=== PATIENT | male | born 1975 | race Caucasian/White ===

== ENCOUNTER 2016-06-11 11:46 | Emergency (ER) | payer SELFPAY ==
--- NOTE | 2016-06-11 12:41 | DIAGNOSTIC IMAGING REPORT ---
PROCEDURE: XR HAND 3 OR 4 VIEWS - RIGHT INDICATION: TRAUMA/INJURY TECHNIQUE: Four views. COMPARISON: None. FINDINGS: No acute fracture or dislocation. Smooth deformity of the fifth metacarpal suggestive of an old fracture. Normal joint spaces. Moderate soft tissue swelling over the dorsum of the hand. IMPRESSION: 1. Soft tissue swelling.
--- NOTE | 2016-06-11 12:43 | DIAGNOSTIC IMAGING REPORT ---
PROCEDURE: XR FOREARM - RIGHT INDICATION: TRAUMA/INJURY TECHNIQUE: Two views of the right forearm. COMPARISON: None. FINDINGS: Soft tissue swelling along the proximal posterior and lateral aspect of the forearm. No evidence of a radiopaque foreign body or subcutaneous air. Bones are unremarkable without fracture or evidence of osteomyelitis. IMPRESSION: 1. Right for soft tissue swelling.
--- NOTE | 2016-06-11 14:49 | ED CLINICAL REPORT ---
Clinical Report - Physicians/Mid Levels [facility] [address] [place] [address] 06/11/2016 11:48 Patient: GERI RODRIGUEZ Time Seen: 12:13. Arrived- By private vehicle. Historian- patient. HISTORY OF PRESENT ILLNESS Chief Complaint: Injury to the right hand and forearm. The injury happened forearm symptoms began yesterday; hand closed in car door today. Occurred at home. ( Last night noted a pimple on his right forearm that has now worsened with increased swelling and pain). The patient sustained a crush injury- caught hand in door (this am car door closed on his right hand). Patient is experiencing moderate pain. Patient denies injury to the head or neck. No other injury. REVIEW OF SYSTEMS The patient has had swelling. No tingling, numbness, weakness, foreign body or skin laceration. All systems otherwise negative, except as recorded above. PAST HISTORY PROBLEMS: Drug Poisoning. Lifestyle / Substance Problems. Diabetes Mellitus. Abdominal Pain. Hyperlipidemia. Depression. Fall. Back Pain. SURGERIES: Ankle. Fracture Repair. Knee Prosthesis. Knee Surgery. The patient's dominant hand is the right. Tetanus immunization status is up-to-date. Methicillin-resistant Staphylococcal infection. SOCIAL HISTORY Smoker- current status unknown. History of drug use prior use of methamphetamines and heroin - denies recent use (none in over 2 years). No alcohol use. ADDITIONAL NOTES The nursing notes have been reviewed. PHYSICAL EXAM Vital Signs: 06/11/2016 11:56 BP: 122/82. HR: 109. RR: 18. O2 saturation: 98%. Temp: 98.3 F. Pain level now: 12/02. Appearance: Alert. Oriented X3. Patient in moderate distress. Head: Head atraumatic. Eyes: Eyes normal inspection. No scleral icterus or pale conjunctivae. ENT: Pharynx normal. No pharyngeal erythema or tonsillar exudate. The mucous membranes are not dry. Neck: Normal inspection. Neck supple. C-spine non-tender. CVS: Tachycardia. Heart sounds normal. Respiratory: No respiratory distress. Breath sounds normal. Abdomen: No visible injury. Soft and nontender. No mass. Obese. Back: No tenderness. Normal inspection. Skin: (right forearm abcess - large). Extremities: Anatomic snuffbox, right arm: No tenderness or swelling. Right hand: moderate tenderness and mild swelling localized to the proximal, distal and dorsal aspect of the hand. Neurovascular intact distally. No erythema, laceration, abrasion, ecchymosis or puncture wound. No foreign body. No wrist injury. Extremities otherwise negative. Neuro, Vascular and Tendons: Vascular status intact. Sensation intact. Motor intact. Tendon function intact. Neuro: Oriented X 3. No motor deficit. LABS, X-RAYS, AND EKG Rt Forearm X-ray: No fracture. Normal alignment. No bony lesion, air in the soft tissue or foreign body. Joint spaces normal. Soft tissue swelling. Views: AP and lateral. Technique: good. The X-rays were interpreted contemporaneously by me. Rt Hand X-ray: No fracture. Normal alignment. No bony lesion, air in the soft tissue or foreign body. Soft tissues normal. Joint spaces normal. Views: AP, lateral and oblique. Technique: good. The X-rays were interpreted contemporaneously by me. PROGRESS AND PROCEDURES Procedural Sedation: Time-out completed immediately before the procedure. Indication: Abscess incision and drainage. ASA classification: 2 - patient with mild systemic disease. Last po intake: this am 7 hours ago (about). History / physical exam. See physical exam recorded above. He has no history of an adverse anesthesia reaction or family history of an adverse anesthesia reaction. Mallampati Classification: Class 3 - only soft palate visible. Short/bull neck. Preparation: consent was obtained and the risks of the procedure, benefits and alternatives were explained to patient. IV established. O2 administered. Placed on pulse oximeter and cardiac cath lab manager. Suction was made available. Medications: Propofol IV administered by physician. Patient status during sedation: was attended constantly, was cooperative and responded only to verbal commands with sluggish response to stimulation. Vitals were stable. Oxygen saturation levels were normal. The airway was maintained. The recovery was uneventful. Complications: None. Post-procedure: Recovery was uneventful. Returned to baseline. No acute distress. Sedation and procedure performed by me; intra-service time 38-52 minutes. Incision & Drainage of Abscess: The abscess is located in the right forearm. The risks of the procedure, benefits and alternatives were explained. Consent was obtained. IV established. O2 administered. Placed on pulse oximeter and cardiac cath lab manager. Local anesthesia provided using 0.50% Marcaine with epi and bicarb. Skin cleansed with Betadine. The abscess was incised with a #11 surgical blade. A moderate amount of pus was drained. Cavity was irrigated with saline and packed with gauze. Sample obtained for cultures and gram stain. A dressing was applied. ( Propofol 80 mg IV for analgesia / sedation). Course of Care: Percocet 5 mg PO given. Vancomycin 2 grams IVPB given. Zofran 4 mg ODT PO given. Propofol 80 mg for sedation IVP given. No systemic symptoms now. I&D performed with good visualization of underlying tissue and this is not typical for necrotizing faciitis . I have arranged for next day [facility] appt. Patient/family counseled. Old ED records reviewed. Disposition: Discharged. Condition: stable and improved. CLINICAL IMPRESSION Crush injury to the right hand. Single deep abscess to the right upper extremity with incision and drainage. Cellulitis of the right forearm. INSTRUCTIONS Apply ice. Elevate affected areas above chest level. Limit use of your hand. Do not work for three days. Warnings: INFECTION: Watch for signs of infection (increasing heat and redness, pus-like drainage, swelling, or increased pain). Return or see your doctor if these signs occur. SEDATIVE MEDICATION: You were given sedative medication during your visit. Do not drive or operate dangerous machinery. CONTROLLED SUBSTANCE WARNINGS. GENERAL WARNINGS: Return or contact your physician immediately if your condition worsens or changes unexpectedly, if not improving as expected, or if other problems arise. Prescription Medications: Hydrocodone/APAP 5mg / 325mg: take 1-2 orally every 8 hours as needed for pain. Dispense ten (10). No refill. Cephalexin 500 mg: take 1 capsule orally every 6 hours for 14 days. No refill. Bactrim DS 800 mg / 160 mg: take 1 tablet orally every 12 hours for 14 days. No refill. Substitution is permissible. OTC Medications: Acetaminophen (available over the counter): take according to label instructions. Motrin (available over the counter): take according to label instructions. Follow-up: Follow up with your doctor tomorrow. Follow-up with: [facility], , , [facility] [place], [address] [place] [address] [address], [place], [address] Follow up tomorrow. Reason for referral: AN APPOINTMENT HAS BEEN MADE FOR YOU FOR 09:30 AM TOMORROW - PLEASE ARRIVE 10 MIN EARLY. (Electronically signed by Josiah Camacho DO 06/11/2016 17:36)
--- NOTE | 2016-06-11 14:49 | ED NURSING NOTES ---
Clinical Report - Nurses [facility] [address] [place] [address] 06/11/2016 11:48 [id number] Triage time 11:56 Jun 11 2016. Acuity: LEVEL 3. Chief Complaint: Patient has an abcess on right arm, he says he slammed his arm in door and the area burst. 12:01 06/11/16. SEPSIS SCREEN: Sepsis Screen. Negative (no infection suspected/documented). CADY COMA SCORE: [place] Coma Scale: 15- eyes open spontaneously (4); best verbal response- oriented x 4 (5); best motor response- obeys commands (6). --12:01 Nae Gupta R.N. 11:56 06/11/16. BP: 122/82 (large adult cuff) taken on the left arm, while sitting. HR: 109. RR: 18. O2 saturation: 98% on room air. Temp: 98.3 F (oral). Pain level now: 12/02. --12:01 Nae Gupta R.N. Weight: 136 kg. Height/Length: 67 inches. BMI: 47. --12:00 Nae Gupta R.N. Medications None. --11:59 Nae Gupta R.N. Allergies No Known Drug Allergy. --11:59 Nae Gupta R.N. History Arrived by private vehicle. Historian: patient. Reported as located on the right forearm. It is described as moderately painful. Treatment CONTACT AND SERVICE CLERKS SUPERVISOR: None. PAST MEDICAL HX: Immunizations: status is unknown. SOCIAL HX: Current every day light tobacco smoker- less than 1/2 a pack per day. No alcohol use or drug use. No infectious disease exposure. ABUSE ASSESSMENT: No report of abuse. --12:01 Nae Gupta R.N. PROBLEMS: Drug Poisoning. Lifestyle / Substance Problems. Diabetes Mellitus. Abdominal Pain. Hyperlipidemia. Depression. Fall. Back Pain. --11:59 Nae Gupta R.N. ADDITIONAL SURGERIES: Ankle. Fracture Repair. Knee Prosthesis. Knee Surgery. --11:59 Nae Gupta R.N. Interventions ID band on patient. To treatment room. --12:01 Nae Gupta R.N. PHYSICAL ASSESSMENT 12:02 06/11/16. Ambulatory to room. GENERAL / NEURO / PSYCH: Alert. Appears in pain. Oriented X 4. HEENT: Pupils equal, round and reactive to light. Mucous membranes are pink. RESPIRATORY: Respirations not labored. Breath sounds within normal limits. CVS: Capillary refill less than 2 seconds. Pulses within normal limits. GI / : Abdomen nontender. SKIN: Skin is warm. Purulent drainage. Swelling on the right forearm- associated with erythema and tenderness. Increased warmth on the right forearm- associated with swelling, tenderness and erythema. --12:02 Nae Gupta R.N. NURSING PROGRESS NOTES The plan of care for this patient has been created. Monitoring of patient in place. Head of bed elevated. Reassurance given. Two patient identifiers checked. Call light placed in reach. Side rails up x 1. Bed placed in lowest position. Brakes of bed on. Patient ready for evaluation- chart flagged and ED physician notified. --12:02 Nae Gupta R.N. ( Patients arm elevated, and ice applied). --12:13 Nae Gupta R.N. 12:31 06/11/2016 Site #1 started via IV in the left forearm with an 20g angiocath; one attempt. --12:56 Sinai Reyna R.N. 12:56 06/11/2016 Started bag #1 1000 mL IV Fluids IV NS (Saline); at 999 mg/hr over 1 hour(s) via site #1 via IV pump. Allergies verified and confirmed 5 rights. IV patency established. IV site checked: no pain, redness, or swelling. IV flushed thoroughly pre- and post-medication administration. --12:56 Sinai Reyna R.N. Cardiac rhythm: sinus tachycardia. The initial plan of care for this patient has been created This plan of care was discussed with the patient. Monitoring of patient in place. Patient gowned. Reassurance given. The patient is calm. Overall patient status is the same- he states feels the same. GENERAL / NEURO / PSYCH: The patient reports pain. Call light placed in reach. Side rails up x 1. Bed placed in lowest position. Brakes of bed on. --13: Sinai Reyna R.N. 12:57 06/11/16. BP: 105/64. HR: 105. RR: 15. O2 saturation: 96% on room air. Temp: 97.4 F. Pain level now: 12/02. --13:01 Sinai Reyna R.N. 13:19 06/11/2016 Started 2 gm of Vancomycin IVPB in bag #1 500 mL; at 270 mg/hr over 2 hour(s) via site #1 via IV pump. Allergies verified and confirmed 5 rights. IV patency established. IV site checked: no pain, redness, or swelling. IV flushed thoroughly pre- and post-medication administration. --13:19 Sinai Reyna R.N. I & D: Incision and Drainage of abscess performed by ED physician. Assisted by one tech. Preparation: Incision and Drainage tray set up. Total time of assist / procedure: 15 minutes. ( assisted DrPb with procedure. cleaned wound area, bulky 4 x 4's to wound and wrapped with kerlex. Culture sent to lab.). --14:33 Kaylee Lam ER Tech1 14:21 06/11/2016 PROPOFOL IVP 80 mg given over 1 minute(s) via site #1. Allergies verified and confirmed 5 rights. IV patency established. IV site checked: no pain, redness, or swelling. IV flushed thoroughly pre- and post-medication administration. IVP given by physician (for concious sedation). --14:40 René Anderson R.N. 14:24 06/11/2016 Bupivacaine-Epinephrine (Bupivacaine-Epinephrine) Injection 0.5 % given. Allergies verified and confirmed 5 rights. (RIGHT Forearm by ). --14:39 René Anderson R.N. late entry -14:32. ( 1432-Conscious sedation completed for I and D of right arm, see paper documentation for sedation and vitals.). --14:42 René Anderson R.N. late entry -14:40. ( Pt recovered after conscious sedation with no complications, able to take PO liquids ice and water without difficulty or N/V). --14:43 René Anderson R.N. 14:43 06/11/16. BP: 108/62. HR: 100. RR: 13. O2 saturation: 100% on room air. --14:44 René Anderson R.N. 14:44 06/11/16. Cardiac rhythm: sinus tachycardia. --14:44 René Anderson R.N. 14:50 06/11/16. Patient ID band checked for patient name and birthdate. Clean catch urine collected with return of yellow-colored urine; sample sent to lab for urinalysis and culture. Specimen labeled in the presence of the patient. --14:50 René Anderson R.N. 14:51 06/11/16. Reassessment after procedure and medication administered. He has had no adverse reaction. GENERAL / NEURO / PSYCH: Denies anxiety. RESPIRATORY: Denies difficulty breathing. No respiratory distress present. No respiratory distress. Breath sounds normal. CVS: Normal sinus rhythm noted. Cardiac rhythm: normal sinus rhythm. SKIN: Denies itching or swelling. Skin is warm and dry. Skin color within normal limits. Skin color normal. --14:51 René Anderson R.N. ( 1433-Dressing applied by tech to right forearm). --14:55 René Anderson R.N. 15:14 06/11/2016 Vancomycin IVPB Discontinued: infused. Total amount infused: 500 mL. IV patency established. IV site checked: no pain, redness, or swelling. IV flushed thoroughly. --15:19 René Anderson R.N. 15:19 06/11/16. Reassessment after medication administered (after Vanco). He has had no adverse reaction. --15:19 René Anderson R.N. 15:22 06/11/2016 Oxycodone-APAP (Oxycodone-Acetaminophen) PO 1 tab given. Allergies verified, confirmed 5 rights and sedative warning given. --15:22 René Anderson R.N. 15:30 06/11/2016 IV Fluids IV NS Discontinued: bag #1 infused upon discharge. Total amount infused: 1000 mL. IV patency established. IV site checked: no pain, redness, or swelling. IV flushed thoroughly. --15:56 René Anderson R.N. DISPOSITION / DISCHARGE 15:17 06/11/2016 Site #1 removed upon discharge. Catheter intact. --15:17 René Anderson R.N. 15:18 06/11/16. Cardiac rhythm: normal sinus rhythm. Condition at departure: improved. The goals identified in the patient's plan of care were met. No learning barriers present. Discharge instructions provided and reviewed. Reviewed warnings. Reviewed medication(s). Treatments reviewed. Reviewed referrals (Wound care appt tomorrow at 0930, pt is aware, address and info on DC instructions). Patient verbalized understanding. Written instructions provided in Chinese. The patient was discharged by the physician. He was discharged home and unaccompanied at time of discharge. He left the Emergency Department ambulatory and via bus. FALL RISK ASSESSMENT: Fall risk assessment completed. No fall risk identified. --15:18 René Anderson R.N. 15:17 06/11/16. BP: 109/66. HR: 89. RR: 18. O2 saturation: 100% on room air. Temp: 98.2 F (oral). Pain level now: 06/02. --15:18 René Anderson R.N. Departure time: 1530. --15:51 René Anderson R.N. Locked/Released at 06/11/2016 15:58 by René Anderson R.N.
--- NOTE | 2016-06-11 14:49 | ED ORDER SUMMARY ---
..... Patient: GERI RODRIGUEZ OrderSheet [facility] VisitID: [id number] [place] [address] 41y, M Registration Date/Time: 06/11/2016 ORDER SHEET Weight: 136.0 kg Allergies: No Known Drug Allergy GENERAL ORDERS: Clinical Review Specialist (Continuous) (12:13 06/11/2016 PHutchinson DO) (13:19 EHassan R.N.) Hand 3 or 4V Right Urgent (12:14 06/11/2016 PHutchinson DO) (Ack 12:18 PWeiler ER Tech1) (12:50 JBoardley R.N.) Forearm Right Urgent (12:14 06/11/2016 PHutchinson DO) (Ack 12:18 PWeiler ER Tech1) (12:50 JBoardley R.N.) UA-Culture if indicated Urgent (12:14 06/11/2016 PHutchinson DO) (Ack 12:18 PWeiler ER Tech1) (14:50 JBoardley R.N.) Cardiac Panel Stat (12:14 06/11/2016 PHutchinson DO) (12:17 JSanders R.N.) (Ack 12:18 PWeiler ER Tech1) BNP Urgent (12:14 06/11/2016 PHutchinson DO) (12:17 JSanders R.N.) (Ack 12:18 PWeiler ER Tech1) D-Dimer Urgent (12:14 06/11/2016 PHutchinson DO) (12:17 JSanders R.N.) (Ack 12:18 PWeiler ER Tech1) Amylase Urgent (12:14 06/11/2016 PHutchinson DO) (12:17 JSanders R.N.) (Ack 12:18 PWeiler ER Tech1) PT with INR Urgent (12:14 06/11/2016 PHutchinson DO) (12:17 JSanders R.N.) (Ack 12:18 PWeiler ER Tech1) Lactate, Serum Urgent (12:06/11/2016 PHutchinson DO) (12:17 JSanders R.N.) (Ack 12:18 PWeiler ER Tech1) Pulse oximeter (12:14 06/11/2016) (12:18 JSanders R.N.) Vitals (12:14 06/11/2016) (12:18 JSanders R.N.) US Ext Non Vascular Right (Hand) (fule out abscess hand and forearm) Urgent (12:14 06/11/2016) (Ack 12:18 PWeiler ER Tech1) (12:21 ) (Cancelled: Other12:21 ) RT Evaluation Stat (13:58 06/11/2016) (14:39 JBoardley R.N.) Culture, Wound Surface (Arm) (right forearm abscess) Urgent (14:32 06/11/2016) (14:39 JBoardley R.N.) MEDICATION ORDERS: Bupivacaine-Epinephrine Injection 0.5 % (soln) (NOW) (13:58 06/11/2016) (14:39 JBoardley R.N.) Oxycodone-APAP PO 5/325 mg (HIGH ALERT MEDICATION, NOW) (15:20 06/11/2016) (15:22 JBoardley R.N.) Zofran ODT PO 4 mg (NOW) (15:20 06/11/2016) (Cancelled: Patient [id number] JBoardley R.N.) IV FLUIDS: IV NS : initial bolus 1000 mL (1000 mL/hr), then 1000 mL/hr for X2 (NOW) (12:13 06/11/2016) (Ack 12:50 JBoardley R.N.) (12:56 EHassan R.N.) Vancomycin IV 2 gm/500 mL (NOW) (12:20 06/11/2016) (Ack 12:50 JBoardley R.N.) (13:19 EHassan R.N.) Propofol IV 80 mg (NOW) (14:32 06/11/2016) (14:40 JBoardley R.N.) ORDER SHEET NOTES: [Electronically signed by René Anderson R.N. (15:58 06/11/2016)] [Electronically signed by Josiah Camacho DO (17:36 06/11/2016)] [Electronically locked/signed by René Anderson R.N. (15:58 06/11/2016)]
--- NOTE | 2016-06-11 14:49 | ED CLINICAL REPORT ---
Clinical Report - Physicians/Mid Levels [facility] [address] [place] [address] 06/11/2016 11:48 Patient: GERI RODRIGUEZ Time Seen: 12:13. Arrived- By private vehicle. Historian- patient. HISTORY OF PRESENT ILLNESS Chief Complaint: Injury to the right hand and forearm. The injury happened forearm symptoms began yesterday; hand closed in car door today. Occurred at home. ( Last night noted a pimple on his right forearm that has now worsened with increased swelling and pain). The patient sustained a crush injury- caught hand in door (this am car door closed on his right hand). Patient is experiencing moderate pain. Patient denies injury to the head or neck. No other injury. REVIEW OF SYSTEMS The patient has had swelling. No tingling, numbness, weakness, foreign body or skin laceration. All systems otherwise negative, except as recorded above. PAST HISTORY PROBLEMS: Drug Poisoning. Lifestyle / Substance Problems. Diabetes Mellitus. Abdominal Pain. Hyperlipidemia. Depression. Fall. Back Pain. SURGERIES: Ankle. Fracture Repair. Knee Prosthesis. Knee Surgery. The patient's dominant hand is the right. Tetanus immunization status is up-to-date. Methicillin-resistant Staphylococcal infection. SOCIAL HISTORY Smoker- current status unknown. History of drug use prior use of methamphetamines and heroin - denies recent use (none in over 2 years). No alcohol use. ADDITIONAL NOTES The nursing notes have been reviewed. PHYSICAL EXAM Vital Signs: 06/11/2016 11:56 BP: 122/82. HR: 109. RR: 18. O2 saturation: 98%. Temp: 98.3 F. Pain level now: 12/02. Appearance: Alert. Oriented X3. Patient in moderate distress. Head: Head atraumatic. Eyes: Eyes normal inspection. No scleral icterus or pale conjunctivae. ENT: Pharynx normal. No pharyngeal erythema or tonsillar exudate. The mucous membranes are not dry. Neck: Normal inspection. Neck supple. C-spine non-tender. CVS: Tachycardia. Heart sounds normal. Respiratory: No respiratory distress. Breath sounds normal. Abdomen: No visible injury. Soft and nontender. No mass. Obese. Back: No tenderness. Normal inspection. Skin: (right forearm abcess - large). Extremities: Anatomic snuffbox, right arm: No tenderness or swelling. Right hand: moderate tenderness and mild swelling localized to the proximal, distal and dorsal aspect of the hand. Neurovascular intact distally. No erythema, laceration, abrasion, ecchymosis or puncture wound. No foreign body. No wrist injury. Extremities otherwise negative. Neuro, Vascular and Tendons: Vascular status intact. Sensation intact. Motor intact. Tendon function intact. Neuro: Oriented X 3. No motor deficit. LABS, X-RAYS, AND EKG Rt Forearm X-ray: No fracture. Normal alignment. No bony lesion, air in the soft tissue or foreign body. Joint spaces normal. Soft tissue swelling. Views: AP and lateral. Technique: good. The X-rays were interpreted contemporaneously by me. Rt Hand X-ray: No fracture. Normal alignment. No bony lesion, air in the soft tissue or foreign body. Soft tissues normal. Joint spaces normal. Views: AP, lateral and oblique. Technique: good. The X-rays were interpreted contemporaneously by me. PROGRESS AND PROCEDURES Procedural Sedation: Time-out completed immediately before the procedure. Indication: Abscess incision and drainage. ASA classification: 2 - patient with mild systemic disease. Last po intake: this am 7 hours ago (about). History / physical exam. See physical exam recorded above. He has no history of an adverse anesthesia reaction or family history of an adverse anesthesia reaction. Mallampati Classification: Class 3 - only soft palate visible. Short/bull neck. Preparation: consent was obtained and the risks of the procedure, benefits and alternatives were explained to patient. IV established. O2 administered. Placed on pulse oximeter and cardiac surgeon. Suction was made available. Medications: Propofol IV administered by physician. Patient status during sedation: was attended constantly, was cooperative and responded only to verbal commands with sluggish response to stimulation. Vitals were stable. Oxygen saturation levels were normal. The airway was maintained. The recovery was uneventful. Complications: None. Post-procedure: Recovery was uneventful. Returned to baseline. No acute distress. Sedation and procedure performed by me; intra-service time 38-52 minutes. Incision & Drainage of Abscess: The abscess is located in the right forearm. The risks of the procedure, benefits and alternatives were explained. Consent was obtained. IV established. O2 administered. Placed on pulse oximeter and cardiac surgeon. Local anesthesia provided using 0.50% Marcaine with epi and bicarb. Skin cleansed with Betadine. The abscess was incised with a #11 surgical blade. A moderate amount of pus was drained. Cavity was irrigated with saline and packed with gauze. Sample obtained for cultures and gram stain. A dressing was applied. ( Propofol 80 mg IV for analgesia / sedation). Course of Care: Percocet 5 mg PO given. Vancomycin 2 grams IVPB given. Zofran 4 mg ODT PO given. Propofol 80 mg for sedation IVP given. No systemic symptoms now. I&D performed with good visualization of underlying tissue and this is not typical for necrotizing faciitis . I have arranged for next day [facility] appt. Patient/family counseled. Old ED records reviewed. Disposition: Discharged. Condition: stable and improved. CLINICAL IMPRESSION Crush injury to the right hand. Single deep abscess to the right upper extremity with incision and drainage. Cellulitis of the right forearm. INSTRUCTIONS Apply ice. Elevate affected areas above chest level. Limit use of your hand. Do not work for three days. Warnings: INFECTION: Watch for signs of infection (increasing heat and redness, pus-like drainage, swelling, or increased pain). Return or see your doctor if these signs occur. SEDATIVE MEDICATION: You were given sedative medication during your visit. Do not drive or operate dangerous machinery. CONTROLLED SUBSTANCE WARNINGS. GENERAL WARNINGS: Return or contact your physician immediately if your condition worsens or changes unexpectedly, if not improving as expected, or if other problems arise. Prescription Medications: Hydrocodone/APAP 5mg / 325mg: take 1-2 orally every 8 hours as needed for pain. Dispense ten (10). No refill. Cephalexin 500 mg: take 1 capsule orally every 6 hours for 14 days. No refill. Bactrim DS 800 mg / 160 mg: take 1 tablet orally every 12 hours for 14 days. No refill. Substitution is permissible. OTC Medications: Acetaminophen (available over the counter): take according to label instructions. Motrin (available over the counter): take according to label instructions. Follow-up: Follow up with your doctor tomorrow. Follow-up with: [facility], , , [facility], [address] [place] [address] [address], [place], [address] Follow up tomorrow. Reason for referral: AN APPOINTMENT HAS BEEN MADE FOR YOU FOR 09:30 AM TOMORROW - PLEASE ARRIVE 10 MIN EARLY. (Electronically signed by Josiah Camacho DO 06/11/2016 17:36)
--- NOTE | 2016-06-11 14:49 | ED ORDER SUMMARY ---
..... Patient: GERI RODRIGUEZ OrderSheet [facility] VisitID: [id number] [place] [address] 41y, M Registration Date/Time: 06/11/2016 ORDER SHEET Weight: 136.0 kg Allergies: No Known Drug Allergy GENERAL ORDERS: Physician Primary Care Sports Medicine (Continuous) (12:13 06/11/2016 PHutchinson DO) (13:19 EHassan R.N.) Hand 3 or 4V Right Urgent (12:14 06/11/2016 PHutchinson DO) (Ack 12:18 PWeiler ER Tech1) (12:50 JBoardley R.N.) Forearm Right Urgent (12:14 06/11/2016 PHutchinson DO) (Ack 12:18 PWeiler ER Tech1) (12:50 JBoardley R.N.) UA-Culture if indicated Urgent (12:14 06/11/2016 PHutchinson DO) (Ack 12:18 PWeiler ER Tech1) (14:50 JBoardley R.N.) Cardiac Panel Stat (12:14 06/11/2016 PHutchinson DO) (12:17 JSanders R.N.) (Ack 12:18 PWeiler ER Tech1) BNP Urgent (12:14 06/11/2016 PHutchinson DO) (12:17 JSanders R.N.) (Ack 12:18 PWeiler ER Tech1) D-Dimer Urgent (12:14 06/11/2016 PHutchinson DO) (12:17 JSanders R.N.) (Ack 12:18 PWeiler ER Tech1) Amylase Urgent (12:14 06/11/2016 PHutchinson DO) (12:17 JSanders R.N.) (Ack 12:18 PWeiler ER Tech1) PT with INR Urgent (12:14 06/11/2016 PHutchinson DO) (12:17 JSanders R.N.) (Ack 12:18 PWeiler ER Tech1) Lactate, Serum Urgent (12:06/11/2016 PHutchinson DO) (12:17 JSanders R.N.) (Ack 12:18 PWeiler ER Tech1) Pulse oximeter (12:14 06/11/2016) (12:18 JSanders R.N.) Vitals (12:14 06/11/2016) (12:18 JSanders R.N.) US Ext Non Vascular Right (Hand) (fule out abscess hand and forearm) Urgent (12:14 06/11/2016) (Ack 12:18 PWeiler ER Tech1) (12:21 ) (Cancelled: Other12:21 ) RT Evaluation Stat (13:58 06/11/2016) (14:39 JBoardley R.N.) Culture, Wound Surface (Arm) (right forearm abscess) Urgent (14:32 06/11/2016) (14:39 JBoardley R.N.) MEDICATION ORDERS: Bupivacaine-Epinephrine Injection 0.5 % (soln) (NOW) (13:58 06/11/2016) (14:39 JBoardley R.N.) Oxycodone-APAP PO 5/325 mg (HIGH ALERT MEDICATION, NOW) (15:20 06/11/2016) (15:22 JBoardley R.N.) Zofran ODT PO 4 mg (NOW) (15:20 06/11/2016) (Cancelled: Patient Toxxwoi15:23 JBoardley R.N.) IV FLUIDS: IV NS : initial bolus 1000 mL (1000 mL/hr), then 1000 mL/hr for X2 (NOW) (12:13 06/11/2016) (Ack 12:50 JBoardley R.N.) (12:56 EHassan R.N.) Vancomycin IV 2 gm/500 mL (NOW) (12:20 06/11/2016) (Ack 12:50 JBoardley R.N.) (13:19 EHassan R.N.) Propofol IV 80 mg (NOW) (14:32 06/11/2016) (14:40 JBoardley R.N.) ORDER SHEET NOTES: [Electronically signed by René Anderson R.N. (15:58 06/11/2016)] [Electronically signed by Josiah Camacho DO (17:36 06/11/2016)] [Electronically locked/signed by René Anderson R.N. (15:58 06/11/2016)]
--- NOTE | 2016-06-11 17:37 | ED MAR SUMMARY ---
..... Medication Administration Record [facility] [address] [place] [address] Patient: GERI RODRIGUEZ Visit ID: [id number] 41y, M Weight: 136.0 kg Height/Length: 67 in BMI: 47 ALLERGIES: No Known Drug Allergy Start 12:56 06/11/2016 Sinai Reyna R.N., Stop 15:30 06/11/2016 René Anderson R.N. Medication Administered: IV NS (SALINE), Dose: IV Fluids over 1 hour(s), Rate: 999 mg/hr, Dispensed: 1000 mL bag, Site: #1 left forearm. Medication Ordered: IV NS : initial bolus 1000 mL (1000 mL/hr), then 1000 mL/hr for X2 (NOW). Start 13:19 06/11/2016 Sinai Reyna R.N., Stop 15:14 06/11/2016 René Anderson R.N. Medication Administered: VANCOMYCIN [IVPB], Dose: 2 gm IVPB over 2 hour(s), Rate: 270 mg/hr, Dispensed: 500 mL bag, Site: #1 left forearm. Medication Ordered: Vancomycin IV 2 gm/500 mL (NOW). Given 14:21 06/11/2016 René Anderson R.N. Medication Administered: PROPOFOL [IVP], Dose: 80 mg IVP over 1 minute(s), Site: #1 left forearm. Medication Ordered: Propofol IV 80 mg (NOW). Given 14:24 06/11/2016 René Anderosn R.N. Medication Administered: BUPIVACAINE-EPINEPHRINE [INJECTION] (BUPIVACAINE-EPINEPHRINE), Dose: 0.5 % Injection. Medication Ordered: Bupivacaine-Epinephrine Injection 0.5 % (soln) (NOW). Given 15:22 06/11/2016 René Anderson R.N. Medication Administered: OXYCODONE-APAP [PO] (OXYCODONE-ACETAMINOPHEN), Dose: 1 tab PO. Medication Ordered: Oxycodone-APAP PO 5/325 mg (HIGH ALERT MEDICATION, NOW).
--- NOTE | 2016-06-11 17:37 | ED DISCHARGE INSTRUCTIONS ---
Patient: GERI RODRIGUEZ General Instructions [facility] VisitID: [id number] [place] [address] 41y, M Registration Date/Time: 06/11/2016 Crush injury to the right hand. Single deep abscess to the right upper extremity with incision and drainage. Cellulitis of the right forearm. INSTRUCTIONS Apply ice. Elevate affected areas above chest level. Limit use of your hand. Do not work for three days. Warnings: INFECTION: Watch for signs of infection (increasing heat and redness, pus-like drainage, swelling, or increased pain). Return or see your doctor if these signs occur. SEDATIVE MEDICATION: You were given sedative medication during your visit. Do not drive or operate dangerous machinery. CONTROLLED SUBSTANCE WARNINGS. GENERAL WARNINGS: Return or contact your physician immediately if your condition worsens or changes unexpectedly, if not improving as expected, or if other problems arise. Prescription Medications: Hydrocodone/APAP 5mg / 325mg: take 1-2 orally every 8 hours as needed for pain. Dispense ten (10). No refill. Cephalexin 500 mg: take 1 capsule orally every 6 hours for 14 days. No refill. Bactrim DS 800 mg / 160 mg: take 1 tablet orally every 12 hours for 14 days. No refill. Substitution is permissible. OTC Medications: Acetaminophen (available over the counter): take according to label instructions. Motrin (available over the counter): take according to label instructions. Follow-up: Follow up with your doctor tomorrow. Follow-up with: [facility], , , [facility], [address] [place] [address] [address], [place] [phone] Follow up tomorrow. Reason for referral: AN APPOINTMENT HAS BEEN MADE FOR YOU FOR 09:30 AM TOMORROW - PLEASE ARRIVE 10 MIN EARLY. ADDITIONAL INFORMATION Crush Injury: Hand [No Fx] You have a CRUSH INJURY of your HAND. This causes local pain, swelling and sometimes bruising. There are no broken bones. This injury may take from a few days to a few weeks to heal. If the FINGERNAIL has been severely injured, it may fall off in 1-2 weeks. A new one will usually start to grow back within a month. Home Care: Keep your hand elevated to reduce pain and swelling. When sitting or lying down elevate your arm above the level of your heart. You can do this by placing your arm on a pillow that rests on your chest or on a pillow at your side. This is most important during the first 48 hours after injury. Apply an ice pack (ice cubes in a plastic bag, wrapped in a towel) over the injured area for 20 minutes every 1-2 hours the first day for pain relief. Continue this 3-4 times a day until the pain and swelling goes away. You may use acetaminophen (Tylenol) or ibuprofen (Motrin, Advil) to control pain, unless another pain medicine was prescribed. [ NOTE : If you have chronic liver or kidney disease or ever had a stomach ulcer or GI bleeding, talk with your doctor before using these medicines.] Keep the splint/cast dry at all times. Bathe with your splint/cast well out of the water, protected with a large plastic bag, rubber-banded at the top end. If a fiberglass cast or splint gets wet, you can dry it with a hair-dryer. Follow Up with your doctor as advised if you are not starting to improve within the next THREE days. [NOTE: If X-rays were taken, they will be reviewed by a radiologist. You will be notified of any new findings that may affect your care.] Get Prompt Medical Attention if any of the following occur: The plaster cast or splint becomes wet or soft The fiberglass cast or splint remains wet for more than 24 hours Increased tightness or pain under the cast or splint Fingers become swollen, cold, blue, numb or tingly Redness, warmth, swelling, drainage from the wound, or foul odor from a cast or splint Fever of 100.4F(38C) or higher, or as directed by your healthcare provider Abscess [Incision & Drainage] An abscess (sometimes called a boil) occurs when bacteria get trapped under the skin and begin to grow. Pus forms inside the abscess as the body responds to the bacteria. An abscess can occur with an insect bite, ingrown hair, blocked oil gland, pimple, cyst, or puncture wound. Treatment of your abscess has required an incision to drain the pus. If the abscess pocket was large, a gauze packing may have been inserted. This will need to be removed and possibly replaced on your next visit. Antibiotics are not required in the treatment of a simple abscess, unless the infection is spreading into the skin around the wound (known as cellulitis). Healing of the wound will take about one to two weeks depending on the size of the abscess. Healthy tissue will grow from the bottom and sides of the opening until it seals over. Home Care: The wound may drain for the first two days. Cover the wound with a clean dry dressing. If the dressing becomes soaked with blood or pus, change it. If a gauze packing was placed inside the abscess cavity, you may be advised to remove it yourself. You may do this in the shower. Once the packing is removed, you should wash the area in the shower or bath 3 to 4 times a day, until the skin opening has closed. If you were prescribed antibiotics, take them as directed until they are all gone. You may use acetaminophen (Tylenol) or ibuprofen (Motrin, Advil) to control pain, unless another pain medicine was prescribed. [ NOTE: If you have liver disease or ever had a stomach ulcer, talk with your doctor before using these medicines.] Follow Up with your doctor as advised by our staff. If a gauze packing was inserted in your wound, it should be removed in 1-2 days. Check your wound every day for the signs of worsening infection listed below. Get Prompt Medical Attention if any of the following occur: Increasing redness or swelling Red streaks in the skin leading away from the wound Increasing local pain or swelling Continued pus draining from the wound two days after treatment Fever of 100.4F (38C) or higher, or as directed by your healthcare provider Cellulitis You have an infection of the skin known as cellulitis. This usually starts with a scrape, cut, insect bite, blister or other opening in the skin which becomes infected. This is a serious condition. It must be watched closely to be sure the infection is not spreading. With antibiotic treatment, the size of the red area will gradually shrink in size until the skin returns to normal. This will take 7-10 days. The red area should never increase in size once the antibiotic medicine has been started. Occasionally, an infection will be resistant to one antibiotic and another one will have to be used. Home Care: 1) Limit the use of the affected part, since excess movement can cause the infection to spread. 2) If the infection is on your leg, walk as little as possible during the first few days of the treatment. Keep your leg elevated while sitting. This will reduce swelling. 3) Take all of the antibiotic medicine exactly as directed until it is gone. Be careful not to miss any doses, especially during the first seven days. Follow Up with your doctor or this facility as directed. Check the infected area daily for the warning signs listed below. Get Prompt Medical Attention if any of the following occur: -- Spreading area of redness -- Increasing swelling or pain -- Appearance of pus or drainage -- Fever over 100.4 F (38.0 C) oral, or over 101.4 F (38.6 C) rectal, after two days on antibiotics Cellulitis You have an infection of the skin known as cellulitis. This usually starts with a scrape, cut, insect bite, blister or other opening in the skin which becomes infected. This is a serious condition. It must be watched closely to be sure the infection is not spreading. With antibiotic treatment, the size of the red area will gradually shrink in size until the skin returns to normal. This will take 7-10 days. The red area should never increase in size once the antibiotic medicine has been started. Occasionally, an infection will be resistant to one antibiotic and another one will have to be used. Home Care: 1) Limit the use of the affected part, since excess movement can cause the infection to spread. 2) If the infection is on your leg, walk as little as possible during the first few days of the treatment. Keep your leg elevated while sitting. This will reduce swelling. 3) Take all of the antibiotic medicine exactly as directed until it is gone. Be careful not to miss any doses, especially during the first seven days. Follow Up with your doctor or this facility as directed. Check the infected area daily for the warning signs listed below. Get Prompt Medical Attention if any of the following occur: -- Spreading area of redness -- Increasing swelling or pain -- Appearance of pus or drainage -- Fever over 100.4 F (38.0 C) oral, or over 101.4 F (38.6 C) rectal, after two days on antibiotics Hydrocodone Bitartrate, Acetaminophen Oral tablet What is this medicine? ACETAMINOPHEN; HYDROCODONE (a set a JENNIFER siri fen; sandy droe KOE done) is a pain reliever. It is used to treat mild to moderate pain. How should I use this medicine? Take this medicine by mouth. Swallow it with a full glass of water. Follow the directions on the prescription label. If the medicine upsets your stomach, take the medicine with food or milk. Do not take more than you are told to take. Talk to your wet cotton feeder regarding the use of this medicine in children. This medicine is not approved for use in children. What side effects may I notice from receiving this medicine? Side effects that you should report to your doctor or health wild animal caretaker as soon as possible: allergic reactions like skin rash, itching or hives, swelling of the face, lips, or tongue breathing problems confusion feeling faint or lightheaded, falls stomach pain yellowing of the eyes or skin Side effects that usually do not require medical attention (report to your doctor or health wild animal caretaker if they continue or are bothersome): nausea, vomiting stomach upset What may interact with this medicine? alcohol antihistamines isoniazid medicines for depression, anxiety, or psychotic disturbances medicines for sleep muscle relaxants naltrexone narcotic medicines (opiates) for pain phenobarbital ritonavir tramadol What if I miss a dose? If you miss a dose, take it as soon as you can. If it is almost time for your next dose, take only that dose. Do not take double or extra doses. Where should I keep my medicine? Keep out of the reach of children. This medicine can be abused. Keep your medicine in a safe place to protect it from theft. Do not share this medicine with anyone. Selling or giving away this medicine is dangerous and against the law. Store at room temperature between 15 and 30 degrees C (59 and 86 degrees F). Protect from light. Keep container tightly closed. Throw away any unused medicine after the expiration date. Discard unused medicine and used packaging carefully. Pets and children can be harmed if they find used or lost packages. What should I tell my health care provider before I take this medicine? They need to know if you have any of these conditions: brain tumor Crohn's disease, inflammatory bowel disease, or ulcerative colitis drink more than 3 alcohol-containing drinks per day drug abuse or addiction head injury heart or circulation problems kidney disease or problems going to the bathroom liver disease lung disease, asthma, or breathing problems an unusual or allergic reaction to acetaminophen, hydrocodone, other opioid analgesics, other medicines, foods, dyes, or preservatives or trying to get breast-feeding What should I watch for while using this medicine? Tell your doctor or health wild animal caretaker if your pain does not go away, if it gets worse, or if you have new or a different type of pain. You may develop tolerance to the medicine. Tolerance means that you will need a higher dose of the medicine for pain relief. Tolerance is normal and is expected if you take the medicine for a long time. Do not suddenly stop taking your medicine because you may develop a severe reaction. Your body becomes used to the medicine. This does NOT mean you are addicted. Addiction is a behavior related to getting and using a drug for a non-medical reason. If you have pain, you have a medical reason to take pain medicine. Your doctor will tell you how much medicine to take. If your doctor wants you to stop the medicine, the dose will be slowly lowered over time to avoid any side effects. You may get drowsy or dizzy when you first start taking the medicine or change doses. Do not drive, use machinery, or do anything that may be dangerous until you know how the medicine affects you. Stand or sit up slowly. There are different types of narcotic medicines (opiates) for pain. If you take more than one type at the same time, you may have more side effects. Give your health care provider a list of all medicines you use. Your doctor will tell you how much medicine to take. Do not take more medicine than directed. Call emergency for help if you have problems breathing. The medicine will cause constipation. Try to have a bowel movement at least every 2 to 3 days. If you do not have a bowel movement for 3 days, call your doctor or health wild animal caretaker. Too much acetaminophen can be very dangerous. Do not take Tylenol (acetaminophen) or medicines that contain acetaminophen with this medicine. Many non-prescription medicines contain acetaminophen. Always read the labels carefully. Cephalexin Monohydrate Oral tablet What is this medicine? CEPHALEXIN (sef a JOSSY in) is a cephalosporin antibiotic. It is used to treat certain kinds of bacterial infections It will not work for colds, flu, or other viral infections. How should I use this medicine? Take this medicine by mouth with a full glass of water. Follow the directions on the prescription label. This medicine can be taken with or without food. Take your medicine at regular intervals. Do not take your medicine more often than directed. Take all of your medicine as directed even if you think you are better. Do not skip doses or stop your medicine early. Talk to your wet cotton feeder regarding the use of this medicine in children. While this drug may be prescribed for selected conditions, precautions do apply. What side effects may I notice from receiving this medicine? Side effects that you should report to your doctor or health wild animal caretaker as soon as possible: allergic reactions like skin rash, itching or hives, swelling of the face, lips, or tongue breathing problems pain or trouble passing urine redness, blistering, peeling or loosening of the skin, including inside the mouth severe or watery diarrhea unusually weak or tired yellowing of the eyes, skin Side effects that usually do not require medical attention (report to your doctor or health wild animal caretaker if they continue or are bothersome): gas or heartburn genital or anal irritation headache joint or muscle pain nausea, vomiting What may interact with this medicine? probenecid some other antibiotics What if I miss a dose? If you miss a dose, take it as soon as you can. If it is almost time for your next dose, take only that dose. Do not take double or extra doses. There should be at least 4 to 6 hours between doses. Where should I keep my medicine? Keep out of the reach of children. Store at room temperature between 59 and 86 degrees F (15 and 30 degrees C). Throw away any unused medicine after the expiration date. What should I tell my health care provider before I take this medicine? They need to know if you have any of these conditions: kidney disease stomach or intestine problems, especially colitis an unusual or allergic reaction to cephalexin, other cephalosporins, penicillins, other antibiotics, medicines, foods, dyes or preservatives or trying to get breast-feeding What should I watch for while using this medicine? Tell your doctor or health wild animal caretaker if your symptoms do not begin to improve in a few days. Do not treat diarrhea with over the counter products. Contact your doctor if you have diarrhea that lasts more than 2 days or if it is severe and watery. If you have diabetes, you may get a false-positive result for sugar in your urine. Check with your doctor or health wild animal caretaker. Sulfamethoxazole, Trimethoprim Oral tablet What is this medicine? SULFAMETHOXAZOLE; TRIMETHOPRIM or SMX-TMP (suhl fuh meth OK alexander zohl; trye METH oh prim) is a combination of a sulfonamide antibiotic and a second antibiotic, trimethoprim. It is used to treat or prevent certain kinds of bacterial infections. It will not work for colds, flu, or other viral infections. How should I use this medicine? Take this medicine by mouth with a full glass of water. Follow the directions on the prescription label. Take your medicine at regular intervals. Do not take it more often than directed. Do not skip doses or stop your medicine early. Talk to your wet cotton feeder regarding the use of this medicine in children. Special care may be needed. This medicine has been used in children as young as 2 months of age. What side effects may I notice from receiving this medicine? Side effects that you should report to your doctor or health wild animal caretaker as soon as possible: allergic reactions like skin rash or hives, swelling of the face, lips, or tongue breathing problems fever or chills, sore throat irregular heartbeat, chest pain joint or muscle pain pain or difficulty passing urine red pinpoint spots on skin redness, blistering, peeling or loosening of the skin, including inside the mouth unusual bleeding or bruising unusually weak or tired yellowing of the eyes or skin Side effects that usually do not require medical attention (report to your doctor or health wild animal caretaker if they continue or are bothersome): diarrhea dizziness headache loss of appetite nausea, vomiting nervousness What may interact with this medicine? Do not take this medicine with any of the following medications: aminobenzoate potassium dofetilide metronidazole This medicine may also interact with the following medications: SAGE inhibitors like benazepril, enalapril, lisinopril, and ramipril cyclosporine digoxin diuretics indomethacin medicines for diabetes methenamine methotrexate phenytoin potassium supplements pyrimethamine sulfinpyrazone tricyclic antidepressants warfarin What if I miss a dose? If you miss a dose, take it as soon as you can. If it is almost time for your next dose, take only that dose. Do not take double or extra doses. Where should I keep my medicine? Keep out of the reach of children. Store at room temperature between 20 to 25 degrees C (68 to 77 degrees F). Protect from light. Throw away any unused medicine after the expiration date. What should I tell my health care provider before I take this medicine? They need to know if you have any of these conditions: anemia asthma being treated with anticonvulsants if you frequently drink alcohol containing drinks kidney disease liver disease low level of folic acid or [id number] dehydrogenase poor nutrition or malabsorption porphyria severe allergies thyroid disorder an unusual or allergic reaction to sulfamethoxazole, trimethoprim, sulfa drugs, other medicines, foods, dyes, or preservatives or trying to get breast-feeding What should I watch for while using this medicine? Tell your doctor or health wild animal caretaker if your symptoms do not improve. Drink several glasses of water a day to reduce the risk of kidney problems. Do not treat diarrhea with over the counter products. Contact your doctor if you have diarrhea that lasts more than 2 days or if it is severe and watery. This medicine can make you more sensitive to the sun. Keep out of the sun. If you cannot avoid being in the sun, wear protective clothing and use a sunscreen. Do not use sun lamps or tanning beds/booths. Acetaminophen Oral tablet What is this medicine? ACETAMINOPHEN (a set a JENNIFER siri fen) is a pain reliever. It is used to treat mild pain and fever. How should I use this medicine? Take this medicine by mouth with a glass of water. Follow the directions on the package or prescription label. Take your medicine at regular intervals. Do not take your medicine more often than directed. Talk to your wet cotton feeder regarding the use of this medicine in children. While this drug may be prescribed for children as young as 6 years of age for selected conditions, precautions do apply. What side effects may I notice from receiving this medicine? Side effects that you should report to your doctor or health wild animal caretaker as soon as possible: allergic reactions like skin rash, itching or hives, swelling of the face, lips, or tongue breathing problems fever or sore throat redness, blistering, peeling or loosening of the skin, including inside the mouth trouble passing urine or change in the amount of urine unusual bleeding or bruising unusually weak or tired yellowing of the eyes or skin Side effects that usually do not require medical attention (report to your doctor or health wild animal caretaker if they continue or are bothersome): headache nausea, stomach upset What may interact with this medicine? alcohol imatinib isoniazid other medicines with acetaminophen What if I miss a dose? If you miss a dose, take it as soon as you can. If it is almost time for your next dose, take only that dose. Do not take double or extra doses. Where should I keep my medicine? Keep out of reach of children. Store at room temperature between 20 and 25 degrees C (68 and 77 degrees F). Protect from moisture and heat. Throw away any unused medicine after the expiration date. What should I tell my health care provider before I take this medicine? They need to know if you have any of these conditions: if you frequently drink alcohol containing drinks liver disease an unusual or allergic reaction to acetaminophen, other medicines, foods, dyes or preservatives or trying to get breast-feeding What should I watch for while using this medicine? Tell your doctor or health wild animal caretaker if the pain lasts more than 10 days (5 days for children), if it gets worse, or if there is a new or different kind of pain. Also, check with your doctor if a fever lasts for more than 3 days. Do not take other medicines that contain acetaminophen with this medicine. Always read labels carefully. If you have questions, ask your doctor or pharmacist. If you take too much acetaminophen get medical help right away. Too much acetaminophen can be very dangerous and cause liver damage. Even if you do not have symptoms, it is important to get help right away. Ibuprofen Oral tablet What is this medicine? IBUPROFEN (eye BYOO proe fen) is a non-steroidal anti-inflammatory drug (NSAID). It is used for dental pain, fever, headaches or migraines, osteoarthritis, rheumatoid arthritis, or painful monthly periods. It can also relieve minor aches and pains caused by a cold, flu, or sore throat. How should I use this medicine? Take this medicine by mouth with a glass of water. Follow the directions on the prescription label. Take this medicine with food if your stomach gets upset. Try to not lie down for at least 10 minutes after you take the medicine. Take your medicine at regular intervals. Do not take your medicine more often than directed. A special MedGuide will be given to you by the pharmacist with each prescription and refill. Be sure to read this information carefully each time. Talk to your wet cotton feeder regarding the use of this medicine in children. Special care may be needed. What side effects may I notice from receiving this medicine? Side effects that you should report to your doctor or health wild animal caretaker as soon as possible: allergic reactions like skin rash, itching or hives, swelling of the face, lips, or tongue black or bloody stools, blood in the urine or in vomit breathing problems changes in vision chest pain general ill feeling or flu-like symptoms nausea or vomiting redness, blistering, peeling or loosening of the skin, including inside the mouth slurred speech or weakness on one side of the body stomach pain unexplained weight gain or swelling unusually weak or tired yellowing of eyes or skin Side effects that usually do not require medical attention (report to your doctor or health wild animal caretaker if they continue or are bothersome): constipation or diarrhea dizziness gas or heartburn stomach upset What may interact with this medicine? Do not take this medicine with any of the following medications: cidofovir ketorolac methotrexate pemetrexed This medicine may also interact with the following medications: alcohol aspirin diuretics lithium other drugs for inflammation like prednisone warfarin What if I miss a dose? If you miss a dose, take it as soon as you can. If it is almost time for your next dose, take only that dose. Do not take double or extra doses. Where should I keep my medicine? Keep out of the reach of children. Store at room temperature between 15 and 30 degrees C (59 and 86 degrees F). Keep container tightly closed. Throw away any unused medicine after the expiration date. What should I tell my health care provider before I take this medicine? They need to know if you have any of these conditions: asthma cigarette smoker drink more than 3 alcohol containing drinks a day heart disease or circulation problems such as heart failure or leg edema (fluid retention) high blood pressure kidney disease liver disease stomach bleeding or ulcers an unusual or allergic reaction to ibuprofen, aspirin, other NSAIDS, other medicines, foods, dyes, or preservatives or trying to get breast-feeding What should I watch for while using this medicine? Tell your doctor or healthcare professional if your symptoms do not start to get better or if they get worse. This medicine does not prevent heart attack or stroke. In fact, this medicine may increase the chance of a heart attack or stroke. The chance may increase with longer use of this medicine and in people who have heart disease. If you take aspirin to prevent heart attack or stroke, talk with your doctor or health wild animal caretaker. Do not take other medicines that contain aspirin, ibuprofen, or naproxen with this medicine. Side effects such as stomach upset, nausea, or ulcers may be more likely to occur. Many medicines available without a prescription should not be taken with this medicine. This medicine can cause ulcers and bleeding in the stomach and intestines at any time during treatment. Ulcers and bleeding can happen without warning symptoms and can cause . To reduce your risk, do not smoke cigarettes or drink alcohol while you are taking this medicine. You may get drowsy or dizzy. Do not drive, use machinery, or do anything that needs mental alertness until you know how this medicine affects you. Do not stand or sit up quickly, especially if you are an older patient. This reduces the risk of dizzy or fainting spells. This medicine can cause you to bleed more easily. Try to avoid damage to your teeth and gums when you brush or floss your teeth. You have been given the following additional information: Crush Injury, Hand/Finger Abscess, Incision And Drainage Cellulitis Cellulitis Hydrocodone Bitartrate, Acetaminophen Oral tablet Cephalexin Monohydrate Oral tablet Sulfamethoxazole, Trimethoprim Oral tablet Acetaminophen Oral tablet Ibuprofen Oral tablet Limit use of your hand. Do not work for three days. (Electronically signed by Josiah Camacho DO 06/11/2016 17:36)
--- NOTE | 2016-06-11 17:37 | ED MAR SUMMARY ---
..... Medication Administration Record [facility] [address] [place] [address] Patient: GERI RODRIGUEZ Visit ID: [id number] 41y, M Weight: 136.0 kg Height/Length: 67 in BMI: 47 ALLERGIES: No Known Drug Allergy Start 12:56 06/11/2016 Sinai Reyna R.N., Stop 15:30 06/11/2016 René Anderson R.N. Medication Administered: IV NS (SALINE), Dose: IV Fluids over 1 hour(s), Rate: 999 mg/hr, Dispensed: 1000 mL bag, Site: #1 left forearm. Medication Ordered: IV NS : initial bolus 1000 mL (1000 mL/hr), then 1000 mL/hr for X2 (NOW). Start 13:19 06/11/2016 Sinai Reyna R.N., Stop 15:14 06/11/2016 René Anderson R.N. Medication Administered: VANCOMYCIN [IVPB], Dose: 2 gm IVPB over 2 hour(s), Rate: 270 mg/hr, Dispensed: 500 mL bag, Site: #1 left forearm. Medication Ordered: Vancomycin IV 2 gm/500 mL (NOW). Given 14:21 06/11/2016 René Anderson R.N. Medication Administered: PROPOFOL [IVP], Dose: 80 mg IVP over 1 minute(s), Site: #1 left forearm. Medication Ordered: Propofol IV 80 mg (NOW). Given 14:24 06/11/2016 René Anderson R.N. Medication Administered: BUPIVACAINE-EPINEPHRINE [INJECTION] (BUPIVACAINE-EPINEPHRINE), Dose: 0.5 % Injection. Medication Ordered: Bupivacaine-Epinephrine Injection 0.5 % (soln) (NOW). Given 15:22 06/11/2016 René Anderson R.N. Medication Administered: OXYCODONE-APAP [PO] (OXYCODONE-ACETAMINOPHEN), Dose: 1 tab PO. Medication Ordered: Oxycodone-APAP PO 5/325 mg (HIGH ALERT MEDICATION, NOW).
--- NOTE | 2016-06-11 17:37 | ED MED RECONCILIATION SUMMARY ---
Patient: GERI RODRIGUEZ Medication Reconciliation Report [facility] VisitID: [id number] [address] [place] [address] 41y, M Registration Date/Time: 06/11/2016 Weight: 136.0 kg Height/Length: 67 in. BMI: 47.0 ALLERGIES: No Known Drug Allergy The patient's Home Medications are listed below: NONE. The source(s) of the original Home Medication information: Not obtained. The following Medications were given to the patient in the Emergency Department: IV NS IV Fluids bolus 0, then 999 mg/hr, administered: 06/11/2016 12:56:00 PM Vancomycin [IVPB] IVPB bolus 0, then 2 gm 270 mg/hr, administered: 06/11/2016 1:19:00 PM Bupivacaine-Epinephrine [Injection] Injection 0.5 %, administered: 06/11/2016 2:24:00 PM PROPOFOL [IVP] IVP 80 mg, administered: 06/11/2016 2:21:00 PM Oxycodone-APAP [PO] PO 1 tab, administered: 06/11/2016 3:22:00 PM The following Medications were prescribed to the patient: Acetaminophen (available over the counter): take according to label instructions. -- Josiah Camacho DO Motrin (available over the counter): take according to label instructions. -- Josiah Camacho DO Hydrocodone/APAP 5mg / 325mg: take 1-2 orally every 8 hours as needed for pain. Dispense ten (10). No refill. -- Josiah Camacho DO Cephalexin 500 mg: take 1 capsule orally every 6 hours for 14 days. No refill. -- Josiah Camacho DO Bactrim DS 800 mg / 160 mg: take 1 tablet orally every 12 hours for 14 days. No refill. Substitution is permissible. -- Josiah Camacho DO
--- NOTE | 2016-06-11 17:37 | ED MED RECONCILIATION SUMMARY ---
Patient: GERI RODRIGUEZ Medication Reconciliation Report [facility] VisitID: [id number] [address] [place] [address] 41y, M Registration Date/Time: 06/11/2016 Weight: 136.0 kg Height/Length: 67 in. BMI: 47.0 ALLERGIES: No Known Drug Allergy The patient's Home Medications are listed below: NONE. The source(s) of the original Home Medication information: Not obtained. The following Medications were given to the patient in the Emergency Department: IV NS IV Fluids bolus 0, then 999 mg/hr, administered: 06/11/2016 12:56:00 PM Vancomycin [IVPB] IVPB bolus 0, then 2 gm 270 mg/hr, administered: 06/11/2016 1:19:00 PM Bupivacaine-Epinephrine [Injection] Injection 0.5 %, administered: 06/11/2016 2:24:00 PM PROPOFOL [IVP] IVP 80 mg, administered: 06/11/2016 2:21:00 PM Oxycodone-APAP [PO] PO 1 tab, administered: 06/11/2016 3:22:00 PM The following Medications were prescribed to the patient: Acetaminophen (available over the counter): take according to label instructions. -- Josiah Camacho DO Motrin (available over the counter): take according to label instructions. -- Josiah Camacho DO Hydrocodone/APAP 5mg / 325mg: take 1-2 orally every 8 hours as needed for pain. Dispense ten (10). No refill. -- Josiah Camacho DO Cephalexin 500 mg: take 1 capsule orally every 6 hours for 14 days. No refill. -- Josiah Camacho DO Bactrim DS 800 mg / 160 mg: take 1 tablet orally every 12 hours for 14 days. No refill. Substitution is permissible. -- Josiah Camacho DO
== END 2016-06-11 15:30 | disposition home or self-care (01) ==
LOC: ED SRH 11:46
DX: S67.21XA Crushing injury of right hand, initial encounter (principal); L02.413 Cutaneous abscess of right upper limb; L03.113 Cellulitis of right upper limb; W23.1XXA Caught, crushed, jammed, or pinched between stationary objects, initial encounter; Y93.9 Activity, unspecified; Y99.9 Unspecified external cause status; Y92.009 Unspecified place in unspecified non-institutional (private) residence as the place of occurrence of the external cause